=== PATIENT | male | born 1970 | race African-American/Black ===

== ENCOUNTER 2016-05-05 17:39 | Emergency (ER) | payer BC ==
[2016-05-05 18:00] VITALS: BP 139/89; PULSE 88; TEMP 98.2; BMI 25.9
--- NOTE | 2016-05-05 19:21 | PDOC ---
History of Present Illness - General History Source: Patient Exam Limitations: No Limitations <France Montesinos - Last Filed: 05/05/16 20:47> - General History Source: Patient Exam Limitations: No Limitations <Dulce Benitez - Last Filed: 05/05/16 21:08> - General Chief Complaint: Chest Pain Stated Complaint: PCP SENT/CHEST DISCOMFORT/ABNORMAL EKG RESULTS Time Seen by Provider: 05/05/16 19:21 - History of Present Illness Initial Comments: 05/05/16 20:48 The patient is a 45-year-old male, with no significant past medical history, who presents to the ED with chest discomfort today. The patient states that he experiences this random sensation in his chest that comes on randomly and lasts about a second before resolving on its own. He does not describe it as a pain or pressure sensation. Pt went to urgent care and his first EKG appeared normal but his second was borderline. He was sent to the ED for further evaluation. He reports that this sensation comes on about 12x a day. It is not exacerbated with food consumption, strenuous activity, deep inspiration, or when the pt applies pressure to his chest. He does report going through a recent break up 2 weeks ago and is not sure if this could be the cause of his symptoms. The patient denies any fever, chills, nausea, vomiting, diarrhea, shortness of breath, or chest pain. (France Montesinos) Past History <France Montesinos - Last Filed: 05/05/16 20:47> - Past Medical History Other medical history: denies - Psycho/Social/Smoking Cessation Hx Suicidal Ideation: No Smoking History: Never smoked Substance Use Type: None <Dulce Benitez - Last Filed: 05/05/16 21:08> - Past Medical History Allergies/Adverse Reactions: Allergies Allergy/AdvReac Type Severity Reaction Status Date / Time No Known Allergies Allergy Verified 05/05/16 17:49 Home Medications: Ambulatory Orders Sildenafil Citrate [Viagra] 25 mg PO PRN PRN 05/05/16 Review of Systems - Review of Systems Able to Perform ROS?: Yes <France Montesinos - Last Filed: 05/05/16 20:47> <Dulce Benitez - Last Filed: 05/05/16 21:08> - Review of Systems Comments:: 05/05/16 20:48 GENERAL/CONSTITUTIONAL: No: fever, chills, weakness, loss of appetite. HEAD, EYES, EARS, NOSE AND THROAT: No: change in vision, ear pain, discharge, sore throat, throat swelling. CARDIOVASCULAR: No: chest pain, lightheadedness, palpitations, syncope. (+) chest discomfort RESPIRATORY: No: cough, shortness of breath, wheezing, hemoptysis, stridor. GASTROINTESTINAL: No: nausea, vomiting, abdominal cramping, diarrhea, rectal bleeding, constipation. GENITOURINARY: No: dysuria, hematuria, frequency, urgency, flank pain. MUSCULOSKELETAL: No: back pain, neck pain, joint pain, muscle swelling or pain SKIN AND BREASTS: No: lesions, pallor, rash or easy bruising. NEUROLOGIC: No: headache, vertigo, paresthesias, weakness ENDOCRINE: No: unexplained weight gain or loss HEMATOLOGIC/LYMPHATIC: No: anemia, easy bleeding, swelling nodes (France Montesinos) *Physical Exam <France Montesinos - Last Filed: 05/05/16 20:47> <Dulce Benitez - Last Filed: 05/05/16 21:08> - Vital Signs Last Vital Signs Temp Pulse Resp BP Pulse Ox 98.2 F 88 18 139/89 100 05/05/16 17:51 05/05/16 17:51 05/05/16 17:51 05/05/16 17:51 05/05/16 19:43 - Physical Exam Comments: 05/05/16 20:48 GENERAL: The patient is in no acute distress. HEAD: Normal with no signs of trauma. EYES: PERRLA, EOMI, sclera anicteric, conjunctiva clear. ENT: Ears normal, nares patent, oropharynx clear without exudates. Moist mucous membranes. NECK: Normal range of motion, supple without lymphadenopathy, JVD, or masses. LUNGS: Breath sounds equal, clear to auscultation bilaterally. No wheezes, and no crackles. HEART:Regular rate and rhythm, normal S1 and S2 without murmur, rub or gallop. ABDOMEN: Soft, nontender, normoactive bowel sounds. No guarding, no rebound. EXTREMITIES: Normal range of motion, no edema. No clubbing or cyanosis. No erythema, or tenderness. NEUROLOGICAL: Cranial nerves II through XII grossly intact. Normal speech. No focal neurological deficits. MUSCULOSKELETAL: Back non-tender to palpation, no CVA tenderness SKIN: Warm, Dry, normal turgor, no rashes or lesions noted. (France Montesinos) Heart Score/ECG Review - History History: Slightly suspicious - Electrocardiogram EKG: Normal - Age Age: 45-65 - Risk Factors Based on the list above the patient has:: No risk factors known - Troponin Troponin: </= normal limit - Score Heart Score - Total: 1 #1 ECG reviewed & interpreted by me at: 21:06 <Dulce Benitez - Last Filed: 05/05/16 21:08> #1 05/05/16 21:07 Twelve-lead EKG was performed and reviewed by me. There is normal sinus rhythm with a normal rate of 91 bpm. The axis is normal. The intervals are normal - pr : 138ms, QRS:88ms, QTc:408ms. There are no ST elevations or depressions. T waves upright (Dulce Benitez) ED Treatment Course - LABORATORY CBC & Chemistry Diagram: 05/05/16 19:40 05/05/16 19:40 <France Montesinos - Last Filed: 05/05/16 20:47> - LABORATORY CBC & Chemistry Diagram: 05/05/16 19:40 05/05/16 19:40 <Dulce Benitez - Last Filed: 05/05/16 21:08> - ADDITIONAL ORDERS Additional order review: Laboratory Results 05/05/16 19:40 Sodium 138 Potassium 4.3 Chloride 101 Carbon Dioxide 29 Anion Gap 8 BUN 15 Creatinine 1.1 Creat Clearance w eGFR > 60 Random Glucose 111 H Calcium 9.1 Total Bilirubin 1.2 H AST 17 ALT 37 Alkaline Phosphatase 71 Creatine Kinase 121 Troponin I < 0.02 Total Protein 7.8 Albumin 4.0 Total Amylase 92 Lipase 163 05/05/16 19:40 RBC 4.87 MCV 88.8 MCHC 33.0 RDW 13.6 MPV 8.0 Neutrophils % 79.6 Lymphocytes % 13.5 Monocytes % 6.1 Eosinophils % 0.1 Basophils % 0.7 - RADIOLOGY Radiology Studies Ordered: Category Date Time Status CHEST X-RAY PORTABLE* [RAD] Stat Radiology 05/05/16 19:33 Taken Medical Decision Making <France Montesinos - Last Filed: 05/05/16 20:47> <Dulce Benitez - Last Filed: 05/05/16 21:08> - Medical Decision Making 05/05/16 19:21 A portion of this note was documented by scribe services under my direction. I have reviewed the details of the note, within reason, and agree with the documentation with the following case summary and management plan written by me. Nursing documentation reviewed and incorporated into medical decision making This is a 45 yo M with no past medical history who presents to the Er with a complaint of a sensation in his chest He states it is not pain It has been present for the past few days, intermittently No radiation to the arm, jaw or back No associated nausea or diaphoresis Non exertional Not associated with shortness of breath no recent travel No lower extremity edema No fevers, chills or cough Unable to elicit symptoms with deep breath or palpation of the chest No prior episodes like this No associated dizziness or weakness Symptoms last for a second and self resolve If he had to rate his symptoms he would say it is a 1/10 Pt states the first time he had his symptoms, they were Not in the setting of a stressful event, though he did break up 2 weeks ago with his girlfriend No tobacco use No family history of sudden or early heart disease (mother does have HTN) Pt was seen at an urgent care He was sent to the ER for evaluation No symptoms currently on examination Nml physical 05/05/16 21:02 Laboratory Tests 05/05/16 05/05/16 19:40 19:40 WBC 11.6 H Hgb 14.3 Hct 43.2 RDW 13.6 Neutrophils % 79.6 Lymphocytes % 13.5 Sodium 138 Potassium 4.3 Chloride 101 Carbon Dioxide 29 BUN 15 Creatinine 1.1 Random Glucose 111 H Creatine Kinase 121 Troponin I < 0.02 Total Amylase 92 Lipase 163 Will discharge to home I have had a long conversation with the patient re: following up with his PMD for additional testing Pt asked to return to the ER for any other concerns or complaints Clinical impression: chest pain I discussed the physical exam findings, ancillary test results and final diagnoses with the patient. I answered all of the patient's questions. The patient was satisfied with the care received and felt comfortable with the discharge plan and treatment plan. The patient will call their primary care physician within 24 hours to arrange follow-up and will return to the Emergency Department with any new, persistent or worsening symptoms. (Dulce Benitez) *DC/Admit/Observation/Transfer <France Montesinos - Last Filed: 05/05/16 20:47> - Discharge Dispostion Admit: No <Dulce Benitez - Last Filed: 05/05/16 21:08> Diagnosis at time of Disposition: Chest pain Qualifiers: Chest pain type: unspecified Qualified Code(s): R07.9 - Chest pain, unspecified - Discharge Dispostion Disposition: HOME Condition at time of disposition: Stable - Patient Instructions Printed Discharge Instructions: DI for Atypical Chest Pain, DI for Chest Pain Additional Instructions: Rodger Thank you for coming in to the ER today Please review your results Please follow up with your primary care physician within 1 week Return to the ER for any other concerns or complaints - Attestations Scribe Attestion: 05/05/16 20:49 Documentation prepared by France Montesinos, acting as biomedical field service engineer for Dulce Benitez MD. (France Montesinos)
[2016-05-05 19:45] LABS: BASOPHIL 0.7 % (0-2.0); EOSINOPHIL 0.1 % (0-4.5); MCH 29.3 pg (25.7-33.7); MEAN CELL VOLUME 88.8 fl (80-96); NEUTROPHILS 79.6 % (42.8-82.8); PLATELET COUNT 257 K/MM3 (134-434); RDW 13.6 % (11.9-15.9); WHITE BLOOD COUNT 11.6 K/mm3 (4.0-10.0)
[2016-05-05 20:20] LABS: AMYLASE 92 U/L (25-115); ANION GAP 8 (8-16); BILIRUBIN,TOTAL 1.2 mg/dL (0.2-1.0); CALCIUM 9.1 mg/dL (8.5-10.1); CO2 29 mmol/L (21-32); CREATININE 1.1 mg/dL (0.7-1.3); GLUCOSE,RANDOM 111 mg/dL (74-106); SGOT/AST 17 U/L (15-37); SGPT/ALT 37 U/L (12-78); TOT PROT 7.8 g/dl (6.4-8.2)
[2016-05-05 20:22] LABS: ALK PHOS 71 U/L (45-117); TROPONIN I < 0.02 ng/ml (0.00-0.05)
--- NOTE | 2016-05-07 16:16 | EKG ---
Test Reason : Blood Pressure : / mmHG Vent. Rate : 091 BPM Atrial Rate : 091 BPM P-R Int : 138 ms QRS Dur : 088 ms QT Int : 332 ms P-R-T Axes : 064 069 059 degrees QTc Int : 408 ms NORMAL SINUS RHYTHM POSSIBLE LEFT ATRIAL ENLARGEMENT BORDERLINE ECG NO PREVIOUS ECGS AVAILABLE Confirmed by EDINSON FOSTER, SHAUNA ([id number]) on 05/07/2016 4:15:46 PM Referred By: Confirmed By:SHAUNA NEVES MD
== END 2016-05-05 21:33 | disposition home or self-care (01) ==
LOC: JER 17:39
DX: R07.9 Chest pain, unspecified (principal); R94.31 Abnormal electrocardiogram [ECG] [EKG]
CPT/HCPCS: 36415; 71010-TC; 80053; 82150; 82550; 83690; 84484; 85025; 93005; 93010; 99284-25